=== PATIENT | male | born 1985 | race African-American/Black ===

== ENCOUNTER 2018-03-04 13:05 | Emergency (ER) | payer MEDICAID, OTHER ==
[~2018-03-04] VITALS: Ht 175.3 cm; Wt 75.0 kg
[2018-03-04 13:11] VITALS: BP 121/76
[2018-03-04] MEDS ORDERED: CefTRIAXone 250MG IM Kit w/LIDOcaine IM ONE (13:40)
[2018-03-04] MEDS ORDERED: azithromycin 250mg tablet PO ONE (13:40)
== END 2018-03-04 14:24 | disposition home or self-care (01) ==
LOC: ER 13:06
DX: A64 Unspecified sexually transmitted disease (principal)
CPT/HCPCS: 36415; 87491; 87591; 96372; 99284; J0696

== ENCOUNTER 2019-03-06 10:33 | Emergency (ER) | payer BC, MEDICAID ==
[~2019-03-06] VITALS: Ht 175.3 cm; Wt 71.1 kg
[2019-03-06 10:57] VITALS: BP 136/85
[2019-03-06] MEDS ORDERED: PENI500T2 PO (12:33)
== END 2019-03-06 13:13 | disposition home or self-care (01) ==
LOC: ER 10:33
DX: K02.9 Dental caries, unspecified (principal); K08.89 Other specified disorders of teeth and supporting structures
CPT/HCPCS: 99283

== ENCOUNTER 2019-07-16 08:39 | Emergency (ER) | payer SELFPAY ==
[~2019-07-16] VITALS: Ht 175.3 cm; Wt 77.3 kg
[2019-07-16] MEDS ORDERED: morphine 4 MG/ML inj SYRINge IV ONE ×2 (09:05→10:50)
[2019-07-16] MEDS ORDERED: diphenhydrAMINE 50 mg/ml inj IV ONE (09:05)
[2019-07-16] MEDS ORDERED: metoclopramide 5 mg/ml inj IV ONE (09:05)
[2019-07-16 09:16] LABS: BASOPHILS # (AUTO) 0.1 X10'3 (0-0.2); BASOPHILS % (AUTO) 0.3 % (0-1); EOSINOPHILS # (AUTO) 0.2 X10'3 (0-0.9); EOSINOPHILS % (AUTO) 1.1 % (0-6); HEMATOCRIT 46.2 % (42.0-52.0); HEMOGLOBIN 15.4 g/dl (14.0-17.9); LYMPHOCYTES # (AUTO) 1.8 X10'3 (1.1-4.8); LYMPHOCYTES % (AUTO) 8.2 % (21-51); MEAN CORPUSCULAR HEMOGLOBIN 29.3 PG (27.0-31.0); MEAN CORPUSCULAR HGB CONC 33.3 g/dL (33.0-36.5); MEAN CORPUSCULAR VOLUME 87.9 FL (78-98); MEAN PLATELET VOLUME 9.7 FL (7.4-10.4); MONOCYTES # (AUTO) 1.4 X10'3 (0-0.9); MONOCYTES % (AUTO) 6.5 % (2-12); NEUTROPHILS % (AUTO) 83.9 % (42-75); PLATELET COUNT 228 X10'3 (140-440); RED BLOOD COUNT 5.26 X10'6 (4.70-6.10); RED CELL DISTRIBUTION WIDTH 12.9 % (11.5-14.5); WHITE BLOOD COUNT 21.4 X10'3 (4.5-11.0)
[2019-07-16 09:29] LABS: ALANINE AMINOTRANSFERASE 34 U/L (12-78); ALBUMIN 4.5 G/DL (3.4-5.0); ALBUMIN/GLOBULIN RATIO 1.4 (1.1-1.5); ALKALINE PHOSPHATASE 54 IU/L (46-116); AMYLASE 40 U/L (25-115); ANION GAP 10 (8-16); ASPARTATE AMINO TRANSFERASE 21 U/L (10-37); BILIRUBIN,TOTAL 0.8 MG/DL (0.1-1.0); BLOOD UREA NITROGEN 8 MG/DL (7-18); CALCIUM 9.5 MG/DL (8.5-10.1); CHLORIDE 104 MMOL/L (99-107); CREATININE 1.14 MG/DL (0.60-1.10); GLUCOSE 151 MG/DL (70-104); LIPASE 101 U/L (73-393); POTASSIUM 3.7 MMOL/L (3.5-5.1); SODIUM 137 MMOL/L (135-145); TOTAL CARBON DIOXIDE 23.5 MMOL/L (24-32); TOTAL PROTEIN 7.7 G/DL (6.4-8.2); eGFR 90 ML/MIN
[2019-07-16] MEDS ORDERED: chlorproMAZINE 25mg/ml inj. IV ONE (10:00)
[2019-07-16] MEDS ORDERED: iohexol 300mg/ml 100ml inj. ONE (11:01)
[2019-07-16] MEDS ORDERED: normal saline 1000ml 1,000 ML IV ONE (11:36)
[2019-07-16] MEDS ORDERED: normal saline 1000ML IV soln IVB ONE (11:40)
[2019-07-16 11:50] LABS: CLARITY,URINE CLEAR (Clear); COLOR,URINE STRAW (Yellow); GLUCOSE, URINE NEGATIVE (Neg); KETONES,URINE TRACE mg/dl (Neg); LEUKOCYTE ESTERASE ,URINE NEGATIVE (Neg); NITRITES, URINE NEGATIVE (Neg); OCCULT BLOOD,URINE TRACE-INTACT (Neg); PROTEIN,URINE NEGATIVE (Neg); UROBILINOGEN,URINE 0.2 E.U/dL (0.2-1.0)
[2019-07-16 11:51] LABS: UA COLLECTION TYPE NON-SPECIFIED
[2019-07-16 11:56] LABS: BACTERIA,URINE NONE SEEN /HPF (Neg); MUCUS STRANDS NONE SEEN /LPF (Neg); RBC,URINE 0-2 /HPF (0-2); SQUAMOUS EPITHELIAL CELL,UR NONE SEEN /LPF (FEW); WBC,URINE NONE SEEN /HPF (0-4)
[2019-07-16 12:40] LABS: BASOPHILS % (AUTO) 0.3 % (0-1); EOSINOPHILS % (AUTO) 0.1 % (0-6); HEMATOCRIT 43.7 % (42.0-52.0); HEMOGLOBIN 14.6 g/dl (14.0-17.9); LYMPHOCYTES # (AUTO) 0.9 X10'3 (1.1-4.8); LYMPHOCYTES % (AUTO) 6.3 % (21-51); MEAN CORPUSCULAR HEMOGLOBIN 29.2 PG (27.0-31.0); MEAN CORPUSCULAR HGB CONC 33.3 g/dL (33.0-36.5); MEAN CORPUSCULAR VOLUME 87.5 FL (78-98); MEAN PLATELET VOLUME 9.5 FL (7.4-10.4); MONOCYTES # (AUTO) 0.7 X10'3 (0-0.9); MONOCYTES % (AUTO) 4.8 % (2-12); NEUTROPHILS # (AUTO) 12.4 X10'3 (1.8-7.7); NEUTROPHILS % (AUTO) 88.5 % (42-75); PLATELET COUNT 208 X10'3 (140-440); RED BLOOD COUNT 4.99 X10'6 (4.70-6.10); RED CELL DISTRIBUTION WIDTH 13.2 % (11.5-14.5)
[2019-07-16 12:54] VITALS: BP 111/63
== END 2019-07-16 13:44 | disposition home or self-care (01) ==
LOC: ER 08:40
DX: K52.9 Noninfective gastroenteritis and colitis, unspecified (principal); Z90.49 Acquired absence of other specified parts of digestive tract
CPT/HCPCS: 36415; 74177; 80053; 81001; 82150; 83690; 85025; 96361; 96374; 96375; 96376; 99285; J1200; J2270; J2765; J3230; J7030; Q9967

== ENCOUNTER 2019-09-07 20:37 | Emergency (ER) | payer OTHER ==
[~2019-09-07] VITALS: Ht 175.3 cm; Wt 170.0 kg
[2019-09-07] MEDS ORDERED: haloperidol lactate 5mg/ml inj IM ONE ×2 (20:45→23:35)
[2019-09-07] MEDS ORDERED: famotidine/PF 10 mg/ml inj IV ONE (20:45)
[2019-09-07] MEDS ORDERED: normal saline 1000ML IV soln IVB ONE ×2 (20:45→21:40)
[2019-09-07] MEDS ORDERED: metoclopramide 5 mg/ml inj IV ONE (20:45)
[2019-09-07] MEDS ORDERED: pantoprazole 40 MG vial IV ONE (20:45)
[2019-09-07 21:18] LABS: BASOPHILS % (AUTO) 0.2 % (0-1); EOSINOPHILS % (AUTO) 0.1 % (0-6); HEMATOCRIT 44.8 % (42.0-52.0); LYMPHOCYTES # (AUTO) 1.4 X10'3 (1.1-4.8); MEAN CORPUSCULAR HGB CONC 33.3 g/dL (33.0-36.5); MEAN CORPUSCULAR VOLUME 86.9 FL (78-98); MEAN PLATELET VOLUME 9.4 FL (7.4-10.4); MONOCYTES % (AUTO) 5.4 % (2-12); NEUTROPHILS % (AUTO) 87.3 % (42-75); PLATELET COUNT 238 X10'3 (140-440); RED BLOOD COUNT 5.16 X10'6 (4.70-6.10); RED CELL DISTRIBUTION WIDTH 13.1 % (11.5-14.5); WHITE BLOOD COUNT 19.5 X10'3 (4.5-11.0)
[2019-09-07 21:33] LABS: ALANINE AMINOTRANSFERASE 50 U/L (12-78); ALBUMIN/GLOBULIN RATIO 1.9 (1.1-1.5); ALKALINE PHOSPHATASE 61 IU/L (46-116); ANION GAP 17 (8-16); ASPARTATE AMINO TRANSFERASE 61 U/L (10-37); BILIRUBIN,TOTAL 1.6 MG/DL (0.1-1.0); BLOOD UREA NITROGEN 22 MG/DL (7-18); BUN/CREATININE RATIO 13.2 (5.4-32.0); CALCIUM 10.5 MG/DL (8.5-10.1); CHLORIDE 96 MMOL/L (99-107); CREATININE 1.67 MG/DL (0.60-1.10); GLUCOSE 138 MG/DL (70-104); LIPASE 53 U/L (73-393); SODIUM 134 MMOL/L (135-145); TOTAL CARBON DIOXIDE 21.2 MMOL/L (24-32); TOTAL PROTEIN 9.1 G/DL (6.4-8.2); eGFR 58 ML/MIN
[2019-09-07 21:35] LABS: ETHANOL < 0.010 GM/DL (0.0-0.010)
[2019-09-07] MEDS ORDERED: diphenhydrAMINE 50 mg/ml inj IV ONE (21:35)
[2019-09-07] MEDS ORDERED: ONDA4TAB6 PO (22:16)
[2019-09-07] MEDS ORDERED: PROC25SU31 RC (22:16)
[2019-09-07] MEDS ORDERED: ondansetron/PF 4mg/2ml inj IV ONE (22:55)
[2019-09-07] MEDS: morphine 2 MG/ML inj. syringe IV PRN (23:09)
--- NOTE | 2019-09-08 00:15 | NUR ---
2mg Morphine Syrng to [facility]
[2019-09-08] MEDS: morphine 2 MG/ML inj. syringe IV PRN (00:25)
[2019-09-08 01:03] LABS: URINE AMPHETAMINE SCREEN NEGATIVE (Neg); URINE BARBITUATE SCREEN NEGATIVE (Neg); URINE BENZODIAZEPINES SCREEN NEGATIVE (Neg); URINE CANNABINOID SCREEN POSITIVE (Neg); URINE COCAINE SCREEN NEGATIVE (Neg); URINE METHADONE SCREEN NEGATIVE (Neg); URINE OPIATE SCREEN POSITIVE (Neg); URINE PHENCYCLIDINE SCREEN NEGATIVE (Neg)
--- NOTE | 2019-09-08 01:09 | NUR ---
offered pt ice chips to see if he can tolerate po
[2019-09-08 01:17] LABS: CLARITY,URINE SLIGHTLY CLOUDY (Clear); COLOR,URINE YELLOW (Yellow); GLUCOSE, URINE NEGATIVE (Neg); KETONES,URINE 40 mg/dl (Neg); LEUKOCYTE ESTERASE ,URINE NEGATIVE (Neg); NITRITES, URINE NEGATIVE (Neg); OCCULT BLOOD,URINE TRACE-INTACT (Neg); PROTEIN,URINE 100 mg/dl (Neg); UROBILINOGEN,URINE 0.2 E.U/dL (0.2-1.0)
[2019-09-08 01:27] LABS: UA COLLECTION TYPE NON-SPECIFIED
[2019-09-08 01:31] LABS: BACTERIA,URINE NONE SEEN /HPF (Neg); CAL OXALATE CRYSTALS FEW /HPF (NEGATIVE); RBC,URINE 0-2 /HPF (0-2); SQUAMOUS EPITHELIAL CELL,UR FEW /LPF (FEW); WBC,URINE 0-4 /HPF (0-4)
[2019-09-08] MEDS ORDERED: PANT-47 PO (01:33)
--- NOTE | 2019-09-08 01:40 | NUR ---
md bolden notified that pt tolerate po ice challenge and will now advance to 1 oz of water for the po challenge
[2019-09-08 02:16] VITALS: BP 120/88
== END 2019-09-08 02:22 | disposition home or self-care (01) ==
LOC: ER 20:38
DX: K29.00 Acute gastritis without bleeding (principal); R11.2 Nausea with vomiting, unspecified; R74.0 Nonspecific elevation of levels of transaminase and lactic acid dehydrogenase [LDH]; R10.10 Upper abdominal pain, unspecified; Z90.49 Acquired absence of other specified parts of digestive tract; Z79.899 Other long term (current) drug therapy
CPT/HCPCS: 36415; 71045; 74176; 80053; 80305; 80320; 81001; 83605; 83690; 84145; 85025; 87040; 96361; 96372; 96374; 96375; 96376; 99285; C9113; J1200; J1630; J2270; J2405; J2765; J3490; J7030

== ENCOUNTER 2019-09-10 18:16 | Emergency (ER) | payer MEDICAID, OTHER ==
[~2019-09-10] VITALS: Ht 175.3 cm; Wt 77.0 kg
[~2019-09-10 18:16] MED LIST: ONDA4TAB6 PO; PANT-47 PO; PROC25SU31 RC
[2019-09-10] MEDS ORDERED: diphenhydrAMINE 50 mg/ml inj IV ONE (19:00)
[2019-09-10] MEDS ORDERED: normal saline 1000ML IV soln IVB ONE (19:00)
[2019-09-10] MEDS ORDERED: haloperidol lactate 5mg/ml inj IM ONE (19:00)
[2019-09-10] MEDS ORDERED: LORazepam 2 mg/ml vial IV ONE (19:00)
[2019-09-10 19:04] LABS: BASOPHILS % (AUTO) 0.1 % (0-1); EOSINOPHILS % (AUTO) 0 % (0-6); HEMATOCRIT 44.5 % (42.0-52.0); HEMOGLOBIN 14.7 g/dl (14.0-17.9); LYMPHOCYTES # (AUTO) 1.1 X10'3 (1.1-4.8); LYMPHOCYTES % (AUTO) 8.4 % (21-51); MEAN CORPUSCULAR HEMOGLOBIN 28.8 PG (27.0-31.0); MEAN CORPUSCULAR HGB CONC 33.1 g/dL (33.0-36.5); MEAN CORPUSCULAR VOLUME 87.2 FL (78-98); MONOCYTES % (AUTO) 8.2 % (2-12); NEUTROPHILS # (AUTO) 10.4 X10'3 (1.8-7.7); NEUTROPHILS % (AUTO) 83.3 % (42-75); PLATELET COUNT 221 X10'3 (140-440); RED CELL DISTRIBUTION WIDTH 13.2 % (11.5-14.5); WHITE BLOOD COUNT 12.5 X10'3 (4.5-11.0)
[2019-09-10 19:13] LABS: ALANINE AMINOTRANSFERASE 52 U/L (12-78); ALBUMIN/GLOBULIN RATIO 1.6 (1.1-1.5); ALKALINE PHOSPHATASE 57 IU/L (46-116); ANION GAP 12 (8-16); ASPARTATE AMINO TRANSFERASE 39 U/L (10-37); BILIRUBIN,TOTAL 2.1 MG/DL (0.1-1.0); BLOOD UREA NITROGEN 11 MG/DL (7-18); BUN/CREATININE RATIO 10.4 (5.4-32.0); CALCIUM 10.4 MG/DL (8.5-10.1); CHLORIDE 101 MMOL/L (99-107); CREATININE 1.06 MG/DL (0.60-1.10); GLUCOSE 120 MG/DL (70-104); LIPASE 122 U/L (73-393); SODIUM 136 MMOL/L (135-145); TOTAL CARBON DIOXIDE 23.5 MMOL/L (24-32); TOTAL PROTEIN 8.2 G/DL (6.4-8.2); eGFR > 90 ML/MIN
[2019-09-10 19:14] LABS: POTASSIUM 4.6 MMOL/L (3.5-5.1)
[2019-09-10] MEDS ORDERED: pantoprazole 40 MG vial IV ONE (19:25)
--- NOTE | 2019-09-10 19:36 | NUR ---
Pt is sleeping comfortably at this time.
[2019-09-10 19:45] LABS: CLARITY,URINE CLEAR (Clear); COLOR,URINE YELLOW (Yellow); GLUCOSE, URINE NEGATIVE (Neg); KETONES,URINE 15 mg/dl (Neg); LEUKOCYTE ESTERASE ,URINE NEGATIVE (Neg); NITRITES, URINE NEGATIVE (Neg); OCCULT BLOOD,URINE NEGATIVE (Neg); PH,URINE 8.5 (4.8-8.0); PROTEIN,URINE TRACE mg/dl (Neg); UROBILINOGEN,URINE 0.2 E.U/dL (0.2-1.0)
[2019-09-10 19:54] LABS: UA COLLECTION TYPE URINAL
[2019-09-10 19:58] LABS: BACTERIA,URINE NONE SEEN /HPF (Neg); MUCUS STRANDS NONE SEEN /LPF (Neg); RBC,URINE 0-2 /HPF (0-2); SQUAMOUS EPITHELIAL CELL,UR FEW /LPF (FEW); WBC,URINE NONE SEEN /HPF (0-4)
--- NOTE | 2019-09-10 20:58 | NUR ---
[employer] CALLED BACK AT 20:[address]. ON HER [address] IN
[2019-09-10] MEDS ORDERED: morphine 2 MG/ML inj. syringe IV ONE (21:05)
[2019-09-10] MEDS ORDERED: PANT-47 PO (22:48)
[2019-09-10 23:01] VITALS: BP 106/59
== END 2019-09-10 23:05 | disposition home or self-care (01) ==
LOC: ER 18:17
DX: R10.13 Epigastric pain (principal); R11.2 Nausea with vomiting, unspecified; F12.90 Cannabis use, unspecified, uncomplicated; Z90.49 Acquired absence of other specified parts of digestive tract; Z79.899 Other long term (current) drug therapy; Z88.8 Allergy status to other drugs, medicaments and biological substances
CPT/HCPCS: 36415; 76700; 80053; 81001; 83690; 85025; 96361; 96372; 96374; 96375; 99285; C9113; J1200; J1630; J2060; J2270; J7030

== ENCOUNTER 2020-03-05 06:39 | Emergency (ER) | payer OTHER ==
[~2020-03-05] VITALS: Ht 175.3 cm; Wt 72.7 kg
[~2020-03-05 06:39] MED LIST changes: -PROC25SU31 RC
[2020-03-05] MEDS ORDERED: normal saline 1000ml 1,000 ML IV ONE (07:15)
[2020-03-05] MEDS ORDERED: normal saline 1000ML IV soln IVB ONE (07:15)
[2020-03-05] MEDS ORDERED: LORazepam 2 mg/ml vial IV ONE (07:15)
[2020-03-05] MEDS ORDERED: ondansetron/PF 4mg/2ml inj IV ONE (07:15)
[2020-03-05] MEDS ORDERED: diphenhydrAMINE 50 mg/ml inj IV ONE (07:15)
[2020-03-05 08:02] LABS: ALANINE AMINOTRANSFERASE 82 U/L (12-78); ALBUMIN 4.5 G/DL (3.4-5.0); ALBUMIN/GLOBULIN RATIO 1.4 (1.1-1.5); ALKALINE PHOSPHATASE 51 IU/L (46-116); ANION GAP 10 (8-16); ASPARTATE AMINO TRANSFERASE 24 U/L (10-37); BILIRUBIN,TOTAL 1.7 MG/DL (0.1-1.0); BLOOD UREA NITROGEN 10 MG/DL (7-18); BUN/CREATININE RATIO 11.9 (5.4-32.0); CALCIUM 9.4 MG/DL (8.5-10.1); CHLORIDE 99 MMOL/L (99-107); CREATININE 0.84 MG/DL (0.60-1.10); GLUCOSE 105 MG/DL (70-104); POTASSIUM 3.8 MMOL/L (3.5-5.1); SODIUM 135 MMOL/L (135-145); TOTAL CARBON DIOXIDE 25.6 MMOL/L (24-32); TOTAL PROTEIN 7.7 G/DL (6.4-8.2); eGFR > 90 ML/MIN
[2020-03-05 08:19] VITALS: BP 137/74
[2020-03-05] MEDS ORDERED: ONDA4TAB6 PO (08:24)
[2020-03-05] MEDS ORDERED: DICY10CA88 PO (08:24)
== END 2020-03-05 09:25 | disposition home or self-care (01) ==
LOC: ER 06:40
DX: R10.33 Periumbilical pain (principal); R11.2 Nausea with vomiting, unspecified; Z88.8 Allergy status to other drugs, medicaments and biological substances; Z98.890 Other specified postprocedural states; K80.20 Calculus of gallbladder without cholecystitis without obstruction
CPT/HCPCS: 36415; 80053; 96361; 96374; 96375; 99284; J1200; J2060; J2405; J7030

== ENCOUNTER 2020-03-19 08:26 | Emergency (ER) | payer SELFPAY ==
[~2020-03-19] VITALS: Ht 175.3 cm; Wt 70.0 kg
[~2020-03-19 08:26] MED LIST changes: +DICY10CA88 PO
[2020-03-19 10:31] LABS: ALANINE AMINOTRANSFERASE 31 U/L (12-78); ALBUMIN 4.5 G/DL (3.4-5.0); ALBUMIN/GLOBULIN RATIO 1.4 (1.1-1.5); ALKALINE PHOSPHATASE 57 IU/L (46-116); ANION GAP 12 (8-16); ASPARTATE AMINO TRANSFERASE 23 U/L (10-37); BILIRUBIN,TOTAL 0.4 MG/DL (0.1-1.0); BLOOD UREA NITROGEN 13 MG/DL (7-18); BUN/CREATININE RATIO 11.9 (5.4-32.0); CALCIUM 9.4 MG/DL (8.5-10.1); CHLORIDE 102 MMOL/L (99-107); CREATININE 1.09 MG/DL (0.60-1.10); GLUCOSE 170 MG/DL (70-104); LIPASE 71 U/L (73-393); POTASSIUM 4.2 MMOL/L (3.5-5.1); SODIUM 139 MMOL/L (135-145); TOTAL CARBON DIOXIDE 24.9 MMOL/L (24-32); TOTAL PROTEIN 7.7 G/DL (6.4-8.2); eGFR > 90 ML/MIN
[2020-03-19 10:34] LABS: BASOPHILS # (AUTO) 0.1 X10'3 (0-0.2); BASOPHILS % (AUTO) 0.7 % (0-1); EOSINOPHILS # (AUTO) 0.4 X10'3 (0-0.9); EOSINOPHILS % (AUTO) 1.9 % (0-6); HEMATOCRIT 42.1 % (42.0-52.0); LYMPHOCYTES # (AUTO) 0.8 X10'3 (1.1-4.8); LYMPHOCYTES % (AUTO) 4.1 % (21-51); MEAN CORPUSCULAR HGB CONC 33.3 g/dL (33.0-36.5); MEAN CORPUSCULAR VOLUME 87.1 FL (78-98); MEAN PLATELET VOLUME 9.7 FL (7.4-10.4); MONOCYTES # (AUTO) 0.3 X10'3 (0-0.9); MONOCYTES % (AUTO) 1.9 % (2-12); NEUTROPHILS # (AUTO) 16.9 X10'3 (1.8-7.7); NEUTROPHILS % (AUTO) 91.4 % (42-75); PLATELET COUNT 251 X10'3 (140-440); RED BLOOD COUNT 4.83 X10'6 (4.70-6.10); WHITE BLOOD COUNT 18.5 X10'3 (4.5-11.0)
[2020-03-19] MEDS ORDERED: normal saline 1000ML IV soln IV ONE (10:45)
[2020-03-19 10:56] LABS: PLATELET ESTIMATE NORMAL; TOTAL CELLS COUNTED 100
[2020-03-19] MEDS ORDERED: ondansetron/PF 4mg/2ml inj IV ONE (11:10)
[2020-03-19 11:21] LABS: HEMOGLOBIN A1C 5.7 % (4.5-6.2)
[2020-03-19] MEDS ORDERED: haloperidol lactate 5mg/ml inj IM ONE (12:10)
[2020-03-19 12:30] LABS: CLARITY,URINE CLEAR (Clear); COLOR,URINE YELLOW (Yellow); GLUCOSE, URINE NEGATIVE (Neg); KETONES,URINE TRACE mg/dl (Neg); LEUKOCYTE ESTERASE ,URINE NEGATIVE (Neg); NITRITES, URINE NEGATIVE (Neg); OCCULT BLOOD,URINE NEGATIVE (Neg); PH,URINE 8.5 (4.8-8.0); PROTEIN,URINE TRACE mg/dl (Neg); UROBILINOGEN,URINE 0.2 E.U/dL (0.2-1.0)
[2020-03-19 12:37] LABS: URINE AMPHETAMINE SCREEN NEGATIVE (Neg); URINE BARBITUATE SCREEN NEGATIVE (Neg); URINE BENZODIAZEPINES SCREEN NEGATIVE (Neg); URINE CANNABINOID SCREEN POSITIVE (Neg); URINE COCAINE SCREEN NEGATIVE (Neg); URINE METHADONE SCREEN NEGATIVE (Neg); URINE OPIATE SCREEN NEGATIVE (Neg); URINE PHENCYCLIDINE SCREEN NEGATIVE (Neg)
[2020-03-19 12:45] LABS: UA COLLECTION TYPE URINAL
[2020-03-19 12:53] LABS: BACTERIA,URINE NONE SEEN /HPF (Neg); RBC,URINE 0-2 /HPF (0-2); SQUAMOUS EPITHELIAL CELL,UR NONE SEEN /LPF (FEW); WBC,URINE 0-4 /HPF (0-4)
[2020-03-19] MEDS ORDERED: morphine 4 MG/ML inj SYRINge IV ONE (12:55)
[2020-03-19] MEDS ORDERED: diphenhydrAMINE 50 mg/ml inj IV ONE (12:55)
[2020-03-19] MEDS ORDERED: proCHLORperazine 10 MG/2 ml inj IV ONE (12:55)
--- NOTE | 2020-03-19 13:27 | NUR ---
Patient refuses CT stating, "I don't want to pay for it, I'd rather leave." Dr. Steward notified.
[2020-03-19] MEDS ORDERED: ONDA4TAB6 PO (13:42)
[2020-03-19] MEDS ORDERED: PROC25SU31 RC (13:42)
[2020-03-19 14:21] VITALS: BP 128/75
== END 2020-03-19 14:23 | disposition home or self-care (01) ==
LOC: ER 08:26
DX: R10.11 Right upper quadrant pain (principal); F12.10 Cannabis abuse, uncomplicated; R11.2 Nausea with vomiting, unspecified; Z90.49 Acquired absence of other specified parts of digestive tract; Z72.89 Other problems related to lifestyle; Z88.8 Allergy status to other drugs, medicaments and biological substances; Z79.899 Other long term (current) drug therapy
CPT/HCPCS: 36415; 80053; 80305; 81001; 83036; 83605; 83690; 84145; 85007; 85025; 96361; 96374; 96375; 99284; J0780; J1200; J2270; J2405; J7030

== ENCOUNTER 2021-06-08 08:49 | Inpatient (IN) | payer MEDICAID, OTHER ==
[2021-06-08] VITALS (8 sets, daily range): BP systolic 97–146; BP diastolic 52–99
[~2021-06-08] VITALS: Ht 175.3 cm; Wt 72.7 kg
[~2021-06-08 08:49] MED LIST changes: -DICY10CA88 PO
[2021-06-08] MEDS ORDERED: ondansetron/PF 4mg/2ml inj IV ONE ×2 (09:10→09:15)
[2021-06-08] MEDS ORDERED: famotidine/PF 10 mg/ml inj IV ONE (09:15)
[2021-06-08] MEDS ORDERED: normal saline 1000ML IV soln IVB ONE (09:15)
[2021-06-08] MEDS: morphine 4 MG/ML inj SYRINge IV PRN ×2 (09:19→10:10)
[2021-06-08] MEDS ORDERED: atropine 1 MG/1 ML vial IV ONE ×2 (09:40→11:45)
[2021-06-08 09:52] LABS: BASOPHILS % (AUTO) 0.1 % (0-1); EOSINOPHILS % (AUTO) 0.2 % (0-6); HEMATOCRIT 46.3 % (42.0-52.0); HEMOGLOBIN 15.4 g/dl (14.0-17.9); LYMPHOCYTES # (AUTO) 1.4 X10'3 (1.1-4.8); LYMPHOCYTES % (AUTO) 7.3 % (21-51); MEAN CORPUSCULAR HEMOGLOBIN 28.6 PG (27.0-31.0); MEAN CORPUSCULAR HGB CONC 33.2 g/dL (33.0-36.5); MEAN CORPUSCULAR VOLUME 86.2 FL (78-98); MEAN PLATELET VOLUME 9.9 FL (7.4-10.4); MONOCYTES # (AUTO) 0.8 X10'3 (0-0.9); MONOCYTES % (AUTO) 4.2 % (2-12); NEUTROPHILS # (AUTO) 17.4 X10'3 (1.8-7.7); NEUTROPHILS % (AUTO) 88.2 % (42-75); PLATELET COUNT 256 X10'3 (140-440); RED BLOOD COUNT 5.36 X10'6 (4.70-6.10); RED CELL DISTRIBUTION WIDTH 13.2 % (11.5-14.5); WHITE BLOOD COUNT 19.7 X10'3 (4.5-11.0)
[2021-06-08] MEDS ORDERED: normal saline 1000ML IV soln IV ONE (10:00)
[2021-06-08] MEDS ORDERED: piperacillin/tazo 3.375gm/50ml 50 ML IV ONE (10:00)
[2021-06-08 10:17] LABS: ALANINE AMINOTRANSFERASE 39 U/L (12-78); ALBUMIN 4.8 G/DL (3.4-5.0); ALBUMIN/GLOBULIN RATIO 1.4 (1.1-1.5); ALKALINE PHOSPHATASE 65 IU/L (46-116); ANION GAP 14 (8-16); ASPARTATE AMINO TRANSFERASE 34 U/L (10-37); BILIRUBIN,TOTAL 0.8 MG/DL (0.1-1.0); BLOOD UREA NITROGEN 13 MG/DL (7-18); BUN/CREATININE RATIO 12.9 (5.4-32.0); CALCIUM 9.7 MG/DL (8.5-10.1); CHLORIDE 103 MMOL/L (99-107); CREATININE 1.01 MG/DL (0.60-1.10); GLUCOSE 173 MG/DL (70-104); LIPASE 56 U/L (73-393); POTASSIUM 4.3 MMOL/L (3.5-5.1); SODIUM 140 MMOL/L (135-145); TOTAL PROTEIN 8.2 G/DL (6.4-8.2); eGFR > 90 ML/MIN
[2021-06-08 11:12] LABS: D-DIMER < 0.19 MG/L FEU (0-0.50)
[2021-06-08] MEDS ORDERED: proCHLORperazine 10 MG/2 ml inj IV ONE (12:55)
[2021-06-08] MEDS ORDERED: morphine 4 MG/ML inj SYRINge IV ONE (12:55)
[2021-06-08] MEDS ORDERED: NS IV SCH (13:00)
[2021-06-08] MEDS ORDERED: ISOPROTERENOL IV SCH (13:00)
[2021-06-08] MEDS ORDERED: magnesium hydroxide 30ml (MOM) UD suspension PO PRN (13:30)
[2021-06-08] MEDS: normal saline 1000ml 1,000 ML IV SCH (13:30)
[2021-06-08] MEDS ORDERED: magnesium Cl slow-release 64mg tablet PO PRN (13:30)
[2021-06-08] MEDS ORDERED: PERFLUTREN PROTEIN-A MICROSPHR (Optison) 0.22 MG/ML 3ML VIAL IV ONE (13:30)
[2021-06-08] MEDS ORDERED: magnesium 2GM in 50ml NS 50 ML IV PRN (13:30)
[2021-06-08] MEDS ORDERED: potassium Cl 20 mEq SR tablet PO PRN ×2 (13:30)
[2021-06-08] MEDS ORDERED: ondansetron inj. 24 MG in normal saline 250ml IV soln 228 ML IV SCH (13:30)
[2021-06-08] MEDS ORDERED: acetaminophen 325mg tablet PO PRN ×2 (13:30)
[2021-06-08] MEDS ORDERED: morphine 4 MG/ML inj SYRINge IV PRN (13:30)
[2021-06-08] MEDS ORDERED: morphine 2 MG/ML inj. syringe IV PRN (13:30)
[2021-06-08 13:53] LABS: CLARITY,URINE CLEAR (Clear); COLOR,URINE YELLOW (Yellow); GLUCOSE, URINE NEGATIVE (Neg); KETONES,URINE 40 mg/dl (Neg); LEUKOCYTE ESTERASE ,URINE NEGATIVE (Neg); NITRITES, URINE NEGATIVE (Neg); OCCULT BLOOD,URINE NEGATIVE (Neg); PH,URINE >=9.0 (4.8-8.0); PROTEIN,URINE TRACE mg/dl (Neg); UROBILINOGEN,URINE 0.2 E.U/dL (0.2-1.0)
[2021-06-08 13:54] LABS: UA COLLECTION TYPE URINAL
[2021-06-08 13:58] LABS: BACTERIA,URINE NONE SEEN /HPF (Neg); MUCUS STRANDS NONE SEEN /LPF (Neg); RBC,URINE NONE SEEN /HPF (0-2); SQUAMOUS EPITHELIAL CELL,UR NONE SEEN /LPF (FEW); WBC,URINE 0-4 /HPF (0-4)
--- NOTE | 2021-06-08 14:00 | NUR ---
PT CURRENTLY NORMAL SINUS RATE 70'S-80'S WITH NORMOTENSIVE PRESSURE. WILL HOLD ISUPREL DUE TO PT RHYTHM.
[2021-06-08 14:08] LABS: URINE AMPHETAMINE SCREEN NEGATIVE (Neg); URINE BARBITUATE SCREEN NEGATIVE (Neg); URINE BENZODIAZEPINES SCREEN NEGATIVE (Neg); URINE CANNABINOID SCREEN POSITIVE (Neg); URINE COCAINE SCREEN NEGATIVE (Neg); URINE METHADONE SCREEN NEGATIVE (Neg); URINE OPIATE SCREEN POSITIVE (Neg); URINE PHENCYCLIDINE SCREEN NEGATIVE (Neg)
[2021-06-08 14:29] LABS: AMYLASE 43 U/L (25-115); LIPASE < 50 U/L (73-393)
[2021-06-08] MEDS ORDERED: VANCOMYCIN 1GM/200ML IVPB 200 ML IV ONE (15:20)
[2021-06-08] MEDS ORDERED: NO HOME MEDS (15:33)
[2021-06-08] MEDS ORDERED: vancomycin inj 1,000 MG in normal saline 250ml IV soln 250 ML IV ONE (15:35)
[2021-06-08] MEDS ORDERED: vancomycin/NS 1 GM ADD-VANTAGE 250 ML X 1 DOSE IV ONE (15:40)
[2021-06-08] MEDS: piperacillin/tazo 3.375gm/50ml 50 ML IV SCH (17:01)
[2021-06-08] MEDS ORDERED: proCHLORperazine 10 MG/2 ml inj IV PRN (17:20)
--- NOTE | 2021-06-08 17:39 | NUR ---
[facility] at approximately 1645. Patient moves self over from stretcher to bed. A & O x4, verbalizes is upset he cannot be with his son this evening at his basketball game. HR remains irregular, Second degree Type II heart block. BP 130's-140's/90's. States nausea has subsided at this time, does still have some abdominal discomfort. On room air. Asks for juice. Clarified orders and plan with Dr. Moore via phone.
[2021-06-08] MEDS: heparin, porcine 5000 units/ml vial SQ SCH (19:38)
[2021-06-08] MEDS: docusate sod 100mg capsule PO SCH (19:39)
[2021-06-08] MEDS ORDERED: VANCOmycin 1250MG/NS 250ml Bag 250 ML IV SCH (22:00)
[2021-06-09] VITALS (10 sets, daily range): BP systolic 95–119; BP diastolic 51–69
[2021-06-09] MEDS: piperacillin/tazo 3.375gm/50ml 50 ML IV SCH ×2 (00:42→07:25)
[2021-06-09] MEDS ORDERED: traMADol 50MG tablet PO PRN (05:05)
[2021-06-09] MEDS: normal saline 1000ml 1,000 ML IV SCH ×2 (05:30→07:35)
[2021-06-09 06:44] LABS: HEMOGLOBIN 14.1 g/dl (14.0-17.9); NEUTROPHILS # (AUTO) 10.4 X10'3 (1.8-7.7)
[2021-06-09 06:47] LABS: BASOPHILS % (AUTO) 0.3 % (0-1); EOSINOPHILS % (AUTO) 0.1 % (0-6); HEMATOCRIT 41.9 % (42.0-52.0); LYMPHOCYTES # (AUTO) 1.8 X10'3 (1.1-4.8); LYMPHOCYTES % (AUTO) 13.4 % (21-51); MEAN CORPUSCULAR HEMOGLOBIN 28.9 PG (27.0-31.0); MEAN CORPUSCULAR HGB CONC 33.7 g/dL (33.0-36.5); MEAN PLATELET VOLUME 10.3 FL (7.4-10.4); MONOCYTES # (AUTO) 1.4 X10'3 (0-0.9); NEUTROPHILS % (AUTO) 76.2 % (42-75); PLATELET COUNT 191 X10'3 (140-440); RED BLOOD COUNT 4.87 X10'6 (4.70-6.10); RED CELL DISTRIBUTION WIDTH 13.3 % (11.5-14.5); WHITE BLOOD COUNT 13.7 X10'3 (4.5-11.0)
[2021-06-09 07:00] LABS: ALANINE AMINOTRANSFERASE 27 U/L (12-78); ALBUMIN 3.8 G/DL (3.4-5.0); ALBUMIN/GLOBULIN RATIO 1.3 (1.1-1.5); ALKALINE PHOSPHATASE 49 IU/L (46-116); ANION GAP 14 (8-16); ASPARTATE AMINO TRANSFERASE 19 U/L (10-37); BILIRUBIN,TOTAL 1.4 MG/DL (0.1-1.0); BLOOD UREA NITROGEN 11 MG/DL (7-18); BUN/CREATININE RATIO 12.6 (5.4-32.0); CALCIUM 8.4 MG/DL (8.5-10.1); CHLORIDE 104 MMOL/L (99-107); CREATININE 0.87 MG/DL (0.60-1.10); GLUCOSE 111 MG/DL (70-104); MAGNESIUM 1.8 MG/DL (1.5-2.4); PHOSPHORUS 3.2 MG/DL (2.3-4.5); SODIUM 139 MMOL/L (135-145); TOTAL CARBON DIOXIDE 21.5 MMOL/L (24-32); TOTAL PROTEIN 6.7 G/DL (6.4-8.2); eGFR > 90 ML/MIN
[2021-06-09] MEDS: heparin, porcine 5000 units/ml vial SQ SCH (07:26)
[2021-06-09] MEDS: docusate sod 100mg capsule PO SCH (07:27)
[2021-06-09] MEDS ORDERED: pantoprazole 40mg Tablet.DR PO SCH (07:30)
--- NOTE | 2021-06-09 10:14 | NUR ---
patient left AMA despite of persuading him to speak with a doctor first about the plan of care, patient insisted to leave, AMA form signed, Iv access discountinued with cannula tip complete and intact. wheeled patient down to entrance lobby, waiting at the car.
[2021-06-10] MEDS ORDERED: VANCOMYCIN LEVEL IV ONE (09:30)
== END 2021-06-09 10:14 | disposition left against medical advice (07) | DRG 201 ==
LOC: ER 08:50 → ED HOLD 13:33 → EDBEDREQ 14:59 → CICU 2S 16:09
PROVIDERS: ADMIT Internal Medicine Critical Care Medicine; ATTEND Internal Medicine Critical Care Medicine
DX: I44.2 Atrioventricular block, complete (principal); U07.1 COVID-19; R11.2 Nausea with vomiting, unspecified; F12.10 Cannabis abuse, uncomplicated; Z53.29 Procedure and treatment not carried out because of patient's decision for other reasons; Z88.8 Allergy status to other drugs, medicaments and biological substances; Z90.49 Acquired absence of other specified parts of digestive tract
CPT/HCPCS: 36415; 74176; 80053; 80305; 81001; 82150; 83605; 83690; 83735; 83880; 84100; 84145; 84439; 84443; 84480; 84484; 85025; 85379; 87040; 87635; 93005; 93306; 99291; 99292; C9803; G0378; J0461; J0780; J1644; J2270; J2405; J2543; J3370; J3490; J7030

== ENCOUNTER 2021-10-14 08:52 | Emergency (ER) | payer MEDICAID, OTHER ==
[~2021-10-14] VITALS: Ht 175.3 cm; Wt 68.2 kg
[~2021-10-14 08:52] MED LIST changes: +NO HOME MEDS; -ONDA4TAB6 PO; -PANT-47 PO
[2021-10-14 10:21] LABS: BASOPHILS % (AUTO) 0.3 % (0-1); EOSINOPHILS % (AUTO) 0.1 % (0-6); HEMATOCRIT 46.7 % (42.0-52.0); HEMOGLOBIN 15.5 g/dl (14.0-17.9); LYMPHOCYTES # (AUTO) 1.9 X10'3 (1.1-4.8); LYMPHOCYTES % (AUTO) 16.1 % (21-51); MEAN CORPUSCULAR HEMOGLOBIN 29.1 PG (27.0-31.0); MEAN CORPUSCULAR HGB CONC 33.2 g/dL (33.0-36.5); MEAN CORPUSCULAR VOLUME 87.5 FL (78-98); MONOCYTES # (AUTO) 1.4 X10'3 (0-0.9); NEUTROPHILS # (AUTO) 8.3 X10'3 (1.8-7.7); NEUTROPHILS % (AUTO) 71.5 % (42-75); PLATELET COUNT 202 X10'3 (140-440); RED BLOOD COUNT 5.34 X10'6 (4.70-6.10); RED CELL DISTRIBUTION WIDTH 13.8 % (11.5-14.5); WHITE BLOOD COUNT 11.6 X10'3 (4.5-11.0)
[2021-10-14 10:37] LABS: ALANINE AMINOTRANSFERASE 40 U/L (12-78); ALBUMIN 4.2 G/DL (3.4-5.0); ALBUMIN/GLOBULIN RATIO 1.3 (1.1-1.5); ALKALINE PHOSPHATASE 50 IU/L (46-116); ANION GAP 10 (8-16); ASPARTATE AMINO TRANSFERASE 37 U/L (10-37); BILIRUBIN,TOTAL 2.7 MG/DL (0.1-1.0); BLOOD UREA NITROGEN 12 MG/DL (7-18); BUN/CREATININE RATIO 13.8 (5.4-32.0); CALCIUM 9.1 MG/DL (8.5-10.1); CHLORIDE 100 MMOL/L (99-107); CREATININE 0.87 MG/DL (0.60-1.10); GLUCOSE 109 MG/DL (70-104); POTASSIUM 4.1 MMOL/L (3.5-5.1); SODIUM 133 MMOL/L (135-145); TOTAL CARBON DIOXIDE 23.5 MMOL/L (24-32); TOTAL PROTEIN 7.5 G/DL (6.4-8.2); eGFR > 90 ML/MIN
[2021-10-14 10:47] LABS: UA COLLECTION TYPE CLN CATCH MIDSTREAM
[2021-10-14 10:48] LABS: CLARITY,URINE CLEAR (Clear); COLOR,URINE YELLOW (Yellow); GLUCOSE, URINE NEGATIVE (Neg); KETONES,URINE NEGATIVE (Neg); LEUKOCYTE ESTERASE ,URINE NEGATIVE (Neg); NITRITES, URINE NEGATIVE (Neg); OCCULT BLOOD,URINE NEGATIVE (Neg); PH,URINE 6.5 (4.8-8.0); PROTEIN,URINE 30 mg/dl (Neg)
[2021-10-14 10:48] LABS: CREATINE KINASE 246 U/L (39-308); LIPASE 79 U/L (73-393)
[2021-10-14 10:53] LABS: BACTERIA,URINE NONE SEEN /HPF (Neg); MUCUS STRANDS MODERATE /LPF (Neg); RBC,URINE 0-2 /HPF (0-2); SQUAMOUS EPITHELIAL CELL,UR FEW /LPF (FEW); WBC,URINE NONE SEEN /HPF (0-4)
[2021-10-14] MEDS ORDERED: normal saline 1000ML IV soln IVB ONE (11:20)
[2021-10-14 13:01] VITALS: BP 106/82
[2021-10-16 13:31] LABS: HBSAG SCREEN Negative (Negative); HEP A AB, IGM Negative (Negative)
[2021-10-17 06:32] LABS: HEPATITIS C ANTIBODY Negative
== END 2021-10-14 13:03 | disposition home or self-care (01) ==
LOC: ER 08:53
DX: R10.9 Unspecified abdominal pain (principal); E80.6 Other disorders of bilirubin metabolism; R11.2 Nausea with vomiting, unspecified; R10.13 Epigastric pain; R19.7 Diarrhea, unspecified; Z87.19 Personal history of other diseases of the digestive system; Z90.49 Acquired absence of other specified parts of digestive tract; Z72.89 Other problems related to lifestyle; Z72.0 Tobacco use; Z88.8 Allergy status to other drugs, medicaments and biological substances; Z86.19 Personal history of other infectious and parasitic diseases
CPT/HCPCS: 36415; 80053; 80074; 81001; 82550; 83690; 83874; 85025; 99283; J7030; 29125

== ENCOUNTER 2022-01-03 11:15 | Emergency (ER) | payer MEDICAID, OTHER ==
[~2022-01-03] VITALS: Ht 175.3 cm; Wt 72.7 kg
[2022-01-03 12:15] LABS: BASOPHILS % (AUTO) 0.4 % (0-1); EOSINOPHILS % (AUTO) 0 % (0-6); HEMATOCRIT 46.7 % (42.0-52.0); HEMOGLOBIN 15.5 g/dl (14.0-17.9); LYMPHOCYTES # (AUTO) 1.6 X10'3 (1.1-4.8); LYMPHOCYTES % (AUTO) 13.2 % (21-51); MEAN CORPUSCULAR HEMOGLOBIN 28.2 PG (27.0-31.0); MEAN CORPUSCULAR HGB CONC 33.2 g/dL (33.0-36.5); MEAN CORPUSCULAR VOLUME 84.9 FL (78-98); MEAN PLATELET VOLUME 9.1 FL (7.4-10.4); MONOCYTES # (AUTO) 0.8 X10'3 (0-0.9); MONOCYTES % (AUTO) 6.4 % (2-12); NEUTROPHILS # (AUTO) 9.7 X10'3 (1.8-7.7); PLATELET COUNT 257 X10'3 (140-440); WHITE BLOOD COUNT 12.1 X10'3 (4.5-11.0)
[2022-01-03 12:29] LABS: ALANINE AMINOTRANSFERASE 44 U/L (12-78); ALBUMIN 4.8 G/DL (3.4-5.0); ALBUMIN/GLOBULIN RATIO 1.5 (1.1-1.5); ALKALINE PHOSPHATASE 60 IU/L (46-116); AMYLASE 81 U/L (25-115); ANION GAP 11 (8-16); ASPARTATE AMINO TRANSFERASE 17 U/L (10-37); BILIRUBIN,TOTAL 1.5 MG/DL (0.1-1.0); BLOOD UREA NITROGEN 12 MG/DL (7-18); BUN/CREATININE RATIO 12.5 (5.4-32.0); CALCIUM 9.9 MG/DL (8.5-10.1); CHLORIDE 101 MMOL/L (99-107); CREATININE 0.96 MG/DL (0.60-1.10); GLUCOSE 126 MG/DL (70-104); LIPASE 324 U/L (73-393); POTASSIUM 4.3 MMOL/L (3.5-5.1); SODIUM 135 MMOL/L (135-145); TOTAL CARBON DIOXIDE 23.5 MMOL/L (24-32); TOTAL PROTEIN 7.9 G/DL (6.4-8.2); eGFR > 90 ML/MIN
[2022-01-03] MEDS ORDERED: normal saline 1000ml 1,000 ML IV ONE ×2 (15:20→17:10)
[2022-01-03] MEDS ORDERED: ondansetron/PF 4mg/2ml inj IV ONE (15:20)
[2022-01-03] MEDS ORDERED: morphine 4 MG/ML inj SYRINge IV ONE (15:20)
[2022-01-03 15:43] LABS: CLARITY,URINE CLEAR (Clear); COLOR,URINE YELLOW (Yellow); GLUCOSE, URINE NEGATIVE (Neg); KETONES,URINE 15 mg/dl (Neg); LEUKOCYTE ESTERASE ,URINE NEGATIVE (Neg); NITRITES, URINE NEGATIVE (Neg); OCCULT BLOOD,URINE NEGATIVE (Neg); PH,URINE 8.5 (4.8-8.0); PROTEIN,URINE TRACE mg/dl (Neg); UROBILINOGEN,URINE 0.2 E.U/dL (0.2-1.0)
[2022-01-03 15:48] LABS: URINE AMPHETAMINE SCREEN NEGATIVE (Neg); URINE BARBITUATE SCREEN NEGATIVE (Neg); URINE BENZODIAZEPINES SCREEN NEGATIVE (Neg); URINE CANNABINOID SCREEN POSITIVE (Neg); URINE COCAINE SCREEN NEGATIVE (Neg); URINE METHADONE SCREEN NEGATIVE (Neg); URINE OPIATE SCREEN NEGATIVE (Neg); URINE PHENCYCLIDINE SCREEN NEGATIVE (Neg)
[2022-01-03 15:53] LABS: UA COLLECTION TYPE CLN CATCH MIDSTREAM
[2022-01-03 15:56] LABS: SQUAMOUS EPITHELIAL CELL,UR FEW /LPF (FEW)
[2022-01-03 16:00] LABS: AMORPHOUS PHOSPHATES 1+; BACTERIA,URINE 1+ /HPF (Neg); RBC,URINE 0-2 /HPF (0-2); WBC,URINE NONE SEEN /HPF (0-4)
[2022-01-03] MEDS ORDERED: haloperidol lactate 5mg/ml inj IM ONE (17:10)
[2022-01-03] MEDS ORDERED: PROC-8 PO (17:20)
[2022-01-03 18:34] VITALS: BP 110/77
== END 2022-01-03 18:37 | disposition home or self-care (01) ==
LOC: ER 11:15
DX: R11.2 Nausea with vomiting, unspecified (principal); F12.188 Cannabis abuse with other cannabis-induced disorder; Z88.8 Allergy status to other drugs, medicaments and biological substances; Z90.49 Acquired absence of other specified parts of digestive tract
CPT/HCPCS: 36415; 80053; 80305; 81001; 82150; 83690; 85025; 96361; 96372; 96374; 96375; 99284; J1630; J2270; J2405; J7030

== ENCOUNTER 2023-01-14 08:39 | Emergency (ER) | payer BC ==
[~2023-01-14] VITALS: Ht 175.3 cm; Wt 165.0 kg
[~2023-01-14 08:39] MED LIST changes: +PROC-8 PO
[2023-01-14 08:45] VITALS: TEMP 98.6
[2023-01-14 09:23] LABS: BASOPHILS # (AUTO) 0.2 X10'3 (0-0.2); BASOPHILS % (AUTO) 1.1 % (0-1); EOSINOPHILS % (AUTO) 0.2 % (0-6); HEMATOCRIT 45.1 % (42.0-52.0); HEMOGLOBIN 14.8 g/dl (14.0-17.9); LYMPHOCYTES # (AUTO) 1.2 X10'3 (1.1-4.8); LYMPHOCYTES % (AUTO) 7.7 % (21-51); MEAN CORPUSCULAR HEMOGLOBIN 28.3 PG (27.0-31.0); MEAN CORPUSCULAR HGB CONC 32.8 g/dL (33.0-36.5); MEAN CORPUSCULAR VOLUME 86.2 FL (78-98); MEAN PLATELET VOLUME 9.3 FL (7.4-10.4); MONOCYTES # (AUTO) 0.7 X10'3 (0-0.9); MONOCYTES % (AUTO) 4.8 % (2-12); NEUTROPHILS # (AUTO) 13.1 X10'3 (1.8-7.7); NEUTROPHILS % (AUTO) 86.2 % (42-75); PLATELET COUNT 241 X10'3 (140-440); RED BLOOD COUNT 5.23 X10'6 (4.70-6.10); WHITE BLOOD COUNT 15.2 X10'3 (4.5-11.0)
[2023-01-14 09:50] LABS: ALANINE AMINOTRANSFERASE 34 U/L (12-78); ALBUMIN 4.5 G/DL (3.4-5.0); ALBUMIN/GLOBULIN RATIO 1.4 (1.1-1.5); ALKALINE PHOSPHATASE 49 IU/L (46-116); ANION GAP 9 (8-16); ASPARTATE AMINO TRANSFERASE 19 U/L (10-37); BILIRUBIN,TOTAL 1.3 MG/DL (0.1-1.0); BLOOD UREA NITROGEN 13 MG/DL (7-18); BUN/CREATININE RATIO 12.4 (10.0-20.0); CHLORIDE 100 MMOL/L (99-107); CREATININE 1.05 MG/DL (0.60-1.10); GLUCOSE 167 MG/DL (70-104); LIPASE 114 U/L (73-393); POTASSIUM 3.7 MMOL/L (3.5-5.1); SODIUM 135 MMOL/L (135-145); TOTAL PROTEIN 7.8 G/DL (6.4-8.2); eCRCL 97 ML/MIN; eGFR > 90 ML/MIN
[2023-01-14 09:57] LABS: CALCIUM 9.7 MG/DL (8.5-10.1)
[2023-01-14] MEDS ORDERED: LORazepam 2 mg/ml vial IV ONE (10:05)
[2023-01-14] MEDS ORDERED: haloperidol lactate 5mg/ml inj IVH ONE (10:05)
[2023-01-14] MEDS ORDERED: famotidine/PF 10 mg/ml inj IV ONE (10:05)
[2023-01-14] MEDS ORDERED: diphenhydrAMINE 50 mg/ml inj IV ONE (10:05)
--- NOTE | 2023-01-14 10:39 | NUR ---
verified and confirmed by dr treviño and jigar mas for the halodol iv admin policy befre admin.okayed to admin iv .placed the pt on cardiac tech.
--- NOTE | 2023-01-14 11:54 | NUR ---
pt still refuses to provide a urine sample
[2023-01-14] MEDS ORDERED: SIME125C PO (12:41)
[2023-01-14] MEDS ORDERED: ONDA4TAB12 PO (12:41)
[2023-01-14 13:04] VITALS: BP 132/93; PULSE 63; RESP 14; O2SAT 100
[2023-01-14] MEDS ORDERED: normal saline 1000ml 1,000 ML IV ONE (13:05)
== END 2023-01-14 15:02 | disposition home or self-care (01) ==
LOC: ER 08:40
DX: R11.10 Vomiting, unspecified (principal); F12.90 Cannabis use, unspecified, uncomplicated; R10.33 Periumbilical pain; Z87.19 Personal history of other diseases of the digestive system; Z90.49 Acquired absence of other specified parts of digestive tract; Z72.89 Other problems related to lifestyle; Z79.899 Other long term (current) drug therapy; Z88.8 Allergy status to other drugs, medicaments and biological substances
CPT/HCPCS: 80053; 83690; 85025; 96374; 96375; 99284; J1200; J1630; J2060; J3490; J7030